=== PATIENT | female | born 1955 | race Caucasian/White ===

== ENCOUNTER 2019-01-01 18:23 | Emergency (ER) | payer OTHER ==
[2019-01-01 18:42] VITALS: BP 165/77
--- NOTE | 2019-01-01 18:56 | UC ---
Bite Injury/Animal HPI - HPI Summary HPI Summary: 63 yo woman with cat bite to the right hand about 22 hours ago, with increasing erythema, pain and swelling of the thumb and hand with streaking of the forearm since this morning. No fever or chills. - History of Current Complaint Chief Complaint: UCBiteInjury Stated Complaint: CAT BITE Time Seen by Provider: 01/01/19 18:55 Hx Obtained From: Patient Hx Last Menstrual Period: POST Severity Currently: Moderate Severity Initially: Moderate Pain Intensity: 5 Onset/Duration: Gradual Onset, Lasting Hours Type of Bite: Pet - cat Has Animal Been Immunized?: Yes Character: Puncture Aggravating Factor(s): Exertion Alleviating Factor(s): Rest Associated Signs And Symptoms: Positive: Erythema, Swelling. Negative: Drainage , Lymphadenopathy Hx of Bite: Provoked by: - grooming the animal Animal Available for Observation: Yes Animal Control Notified: Yes - Risk Factors Infection/Sepsis Risk Factors: Delay in Initial Treatment - Allergies/Home Medications Allergies/Adverse Reactions: Allergies Allergy/AdvReac Type Severity Reaction Status Date / Time No Known Allergies Allergy Verified 01/01/19 18:36 PMH/Surg Hx/FS Hx/Imm Hx Cardiovascular History: Hypertension, Other - Past cardiac ablation for arrhymthmia Respiratory History: Other - smoker Psychological History: Anxiety - Surgical History Surgical History: Yes Surgery Procedure, Year, and Place: laparoscopy's - Family History Known Family History: Positive: Hypertension - Social History Occupation: Unemployed Lives: With Family Alcohol Use: Occasionally Substance Use Type: None Smoking Status (MU): Current Every Day Smoker Type: Cigarettes Amount Used/How Often: 1/2PPD Length of Time of Smoking/Using Tobacco: since 1990 Review of Systems All Other Systems Reviewed And Are Negative: Yes Constitutional: Positive: Negative Skin: Positive: Other - lymphangitis Eyes: Positive: Negative ENT: Positive: Negative Respiratory: Positive: Negative Cardiovascular: Positive: Negative Gastrointestinal: Positive: Negative Motor: Positive: Negative Neurovascular: Positive: Negative Musculoskeletal: Positive: Arthralgia, Other: - swelling thenar eminence. Neurological: Positive: Negative Psychological: Positive: Negative Is Patient Immunocompromised?: No Physical Exam Triage Information Reviewed: Yes Appearance: Well-Appearing, Pain Distress - mild Vital Signs: Initial Vital Signs Temp 98.8 F 01/01/19 18:37 Pulse 90 01/01/19 18:37 Resp 17 01/01/19 18:37 BP 165/77 01/01/19 18:37 Pulse Ox 97 01/01/19 18:37 Eyes: Positive: Conjunctiva Inflamed Respiratory: Positive: Lungs clear, Normal breath sounds Cardiovascular: Positive: RRR, No Murmur Musculoskeletal Exam: Other - puncture wound first digit over first MCP joint and second web space of digits. Erythema and swelling of the first MCP joint. Neurological Exam: Normal Psychological Exam: Normal Skin Exam: Other - erythematous streaks from the wrist to the elbow, no swelling associated, no adenopathy. Skin: Positive: Other - Erythema, warmth and swelling of the first MCP and web space of the right hand. Bite Injury Course/Dx - Course Course Of Treatment: begin augmentin, confirm tetanus status, follow up tomorrow if increasing erythema and swelling. - Differential Dx/Diagnosis Differential Diagnosis/HQI/PQRI: Cellulitis Provider Diagnosis: Cellulitis of hand, right Discharge ED - Sign-Out/Discharge Documenting (check all that apply): Patient Departure All imaging exams completed and their final reports reviewed: No Studies - Discharge Plan Condition: Stable Disposition: HOME Prescriptions: Amoxicillin/Clavulanate TAB* [Augmentin TAB 875*] 875 mg PO BID #20 tab Patient Education Materials: Cellulitis (ED) Referrals: Leeanne Ricks MD [Primary Care Provider] - Additional Instructions: Keep your hand elevated, and you can use compresses as needed for swelling' Use ibuprofen 600mg as needed for pain, limiting use to 2 to 3 days due to your history of hypertension. Stop if you develop stomach upset as a result. Double check with [facility] tomorrow that your tetanus is current. If not, please arrange a booster vaccine at their office. If your hand becomes more swollen and you have increasing pain, please go to the emergency room for evaluation. - Billing Disposition and Condition Condition: STABLE Disposition: Home
== END 2019-01-01 19:35 | disposition home or self-care (01) ==
LOC: UCEAST 18:23
DX: L03.012 Cellulitis of left finger (principal); L03.114 Cellulitis of left upper limb; I10 Essential (primary) hypertension; F17.210 Nicotine dependence, cigarettes, uncomplicated
CPT/HCPCS: 99212; G0463